=== PATIENT | male | born 1945 | race Two or more races ===

== ENCOUNTER 2018-08-01 14:45 | Emergency (ER) | payer MEDICARE ==
[~2018-08-01] VITALS: Ht 167.6 cm; Wt 64.4 kg
--- NOTE | 2018-08-01 14:53 | NUR ---
DR ERICKSON AT BEDSIDE
--- NOTE | 2018-08-01 15:04 | NUR ---
[id number], C/O DIZZINESS SINCE THIS MORNING, FROM WORK.-INJURY,-CP,-SOB. STATES HE WAS AT [place] [facility] TODAY, THEY TOLD HIM HE WAS FINE, BUT HE FELT DIZZY AGAIN AFTER RETURNING TO WORK. PT IS AOX4, AMB, HYPERTENSIVE, RR EVEN AND UNLABORED. SKIN INTACT AND NO ACUTE DISTRESS NOTED. DENIES PAIN, WEAKNESS, N/V. AWAITING ORDERS.
[2018-08-01] MEDS ORDERED: LORAZEPAM 0.5 MG TABLET ONE (15:18)
[2018-08-01] MEDS ORDERED: LORAZEPAM 0.5 MG TABLET PO ONE (15:30)
--- NOTE | 2018-08-01 15:30 | NUR ---
URINE COLLECTED AND SENT TO STAT LAB
[2018-08-01 16:11] LABS: APPEARANCE,URINE Clear (CLEAR); BILIRUBIN,URINE Negative (NEGATIVE); BLOOD, URINE Trace-lysed Ery/uL (NEGATIVE); COLOR,URINE Yellow (YELLOW); KETONES,URINE Negative (NEGATIVE); LEUKOCYTE ESTERASE ,URINE Negative (NEGATIVE); NITRITE, URINE Negative (NEGATIVE); PH,URINE 7.5 (5.0-8.0); PROTEIN,URINE Negative (NEGATIVE); UGLUCOSE Negative (NEGATIVE); UROBILINOGEN,URINE 0.2 EU/dL (0.2)
--- NOTE | 2018-08-01 16:15 | NUR ---
Patient discharged to home in stable condition. Written and verbal after care instructions given. Patient verbalizes understanding of instruction.
[2018-08-01 16:20] LABS: BACTERIA,URINE None seen /HPF (None Seen); RBC,URINE 0-2 /HPF (0-2); SQUAMOUS EPITHELIAL CELL,UR Few /HPF (None Seen); WBC,URINE 0-2 /HPF (0-3)
[2018-08-01 16:26] VITALS: BP 136/84
== END 2018-08-01 16:15 | disposition home or self-care (01) ==
LOC: ER 14:47
DX: R42 Dizziness and giddiness (principal); F41.9 Anxiety disorder, unspecified; F32.9 Major depressive disorder, single episode, unspecified; R56.9 Unspecified convulsions; F29 Unspecified psychosis not due to a substance or known physiological condition
CPT/HCPCS: 81001; 99283; A4606; 81000-TC